=== PATIENT | male | born 1940 ===

== ENCOUNTER → 2023-08-24 | Emergency (ER) | payer MEDICARE ==
[~2023-08-24] VITALS: Ht 185.4 cm; Wt 90.9 kg
[2023-08-24 19:51] VITALS: BP 131/86; PULSE 74; RESP 18; TEMP 99.7; O2SAT 94
== END | disposition home or self-care (01) ==
LOC: ER 19:33
DX: M79.10 Myalgia, unspecified site (principal); Z53.21 Procedure and treatment not carried out due to patient leaving prior to being seen by health care provider
CPT/HCPCS: 99281